=== PATIENT | female | born 1985 | race Two or more races ===

== ENCOUNTER 2022-05-11 01:55 | Emergency (ER) | payer MEDICAID ==
[~2022-05-11] VITALS: Ht 157.5 cm; Wt 77.1 kg
[2022-05-11 02:23] VITALS: BP 145/84
[2022-05-11] MEDS ORDERED: FAMOTIDINE (20 MG) 20 MG TABLET ONE (02:35)
[2022-05-11] MEDS ORDERED: LIDOCAINE VISCOUS 2% UD 15 ML UDC ONE (02:35)
[2022-05-11] MEDS ORDERED: MAG HYDROX/AL HYDROX/SIMETH 30 ML UDC ONE (02:35)
[2022-05-11] MEDS: MAG HYDROX/AL HYDROX/SIMETH 30 ML UDC PO ONE (02:40)
[2022-05-11] MEDS: LIDOCAINE VISCOUS 2% UD 15 ML UDC MM ONE (02:40)
[2022-05-11] MEDS: FAMOTIDINE (20 MG) 20 MG TABLET PO ONE (02:40)
[2022-05-11] MEDS ORDERED: PANT40TA2 PO (02:41)
== END 2022-05-11 02:49 | disposition home or self-care (01) ==
LOC: ER 02:01
DX: K21.9 Gastro-esophageal reflux disease without esophagitis (principal); Z60.2 Problems related to living alone